=== PATIENT | female | born 1985 | race Caucasian/White ===

== ENCOUNTER 2020-07-08 11:56 | Emergency (ER) | payer MEDICAID ==
[~2020-07-08] VITALS: Ht 165.1 cm; Wt 122.9 kg
[2020-07-08 12:02] VITALS: Ht 165.1 cm; Wt 122.9 kg
[2020-07-08 14:03] VITALS: BP 100/54
== END 2020-07-08 14:03 | disposition home or self-care (01) ==
LOC: ED 11:56
DX: R51 Headache (principal); J34.89 Other specified disorders of nose and nasal sinuses; R11.0 Nausea
CPT/HCPCS: J1885; Q0162

== ENCOUNTER 2020-09-30 21:09 | Emergency (ER) | payer MEDICAID ==
[~2020-09-30] VITALS: Ht 165.1 cm; Wt 122.9 kg
[2020-09-30 21:16] VITALS: Ht 165.1 cm; Wt 122.9 kg
[2020-09-30 21:57] VITALS: BP 124/68
== END 2020-09-30 21:57 | disposition home or self-care (01) ==
LOC: ED 21:09
DX: S61.411A Laceration without foreign body of right hand, initial encounter (principal); W26.8XXA Contact with other sharp object(s), not elsewhere classified, initial encounter; Y93.89 Activity, other specified; Y92.89 Other specified places as the place of occurrence of the external cause; Y99.8 Other external cause status
CPT/HCPCS: 90715

== ENCOUNTER 2020-12-01 21:40 | Emergency (ER) | payer OTHER ==
[~2020-12-01] VITALS: Ht 162.6 cm; Wt 124.3 kg
[2020-12-01 22:01] VITALS: BP 111/44; Ht 162.6 cm; Wt 124.3 kg
[2020-12-01 23:16] LABS: BASOPHIL % 0.3 % (0.2-1.3); PLATELET COUNT 218 x10^3mcL (179-408); RED CELL DISTRIBUTION WIDTH 13.3 % (12.3-17.7)
== END 2020-12-02 00:17 | disposition home or self-care (01) ==
LOC: ED 21:40
PROVIDERS: Emergency Medicine
DX: O20.0 Threatened abortion (principal); Z88.5 Allergy status to narcotic agent